=== PATIENT | female | born 1960 | race Caucasian/White ===

== ENCOUNTER → 2021-08-31 | Outpatient (CLI) | payer BC ==
[2021-09-03 17:10] LABS: HPV 16 Negative (Negative); HPV 18 Negative (Negative); HPV OTHER HR TYPES Negative (Negative)
== END | disposition home or self-care (01) ==
LOC: LAB 16:30 → LAB SHORT 16:30
PROVIDERS: Nurse Practitioner Family
DX: Z01.419 Encounter for gynecological examination (general) (routine) without abnormal findings (principal)
CPT/HCPCS: 87624; 88175

== ENCOUNTER 2021-11-09 11:43 | Day surgery (SDC) | payer BC ==
[~2021-11-09] VITALS: Ht 157.5 cm; Wt 57.9 kg
[2021-11-09] MEDS ORDERED: ATOR80 PO (12:25)
[2021-11-09] MEDS ORDERED: TRAZ50 PO (12:25)
[2021-11-09] MEDS ORDERED: SERT25 PO (12:25)
--- NOTE | 2021-11-09 12:30 | NUR ---
11/09/21 1230 Carmelo Read CALL LIGHT WITHIN REACH
--- NOTE | 2021-11-09 13:33 | NUR ---
11/09/21 1333 Jamarcus Vivar 1 MG EPI ADDED TO EACH OF THE FIRST 3 BAGS OF LR PER ORDER FOR IRRIGATION AT [facility].
== END 2021-11-09 15:35 | disposition home or self-care (01) ==
LOC: ORSCSDS 11:43
PROVIDERS: Orthopaedic Surgery
PROC: 3E0U3GC Introduction of Other Therapeutic Substance into Joints, Percutaneous Approach (ICD-10-PCS; 2021-11-09)
PROC: 0RHJ44Z Insertion of Internal Fixation Device into Right Shoulder Joint, Percutaneous Endoscopic Approach (ICD-10-PCS; principal; 2021-11-09 13:15)
PROC: 0LQ14ZZ Repair Right Shoulder Tendon, Percutaneous Endoscopic Approach (ICD-10-PCS; principal; 2021-11-09 13:15)
PROC: 0LS34ZZ Reposition Right Upper Arm Tendon, Percutaneous Endoscopic Approach (ICD-10-PCS; principal; 2021-11-09 13:15)
PROC: 0RNJ4ZZ Release Right Shoulder Joint, Percutaneous Endoscopic Approach (ICD-10-PCS; principal; 2021-11-09 13:15)
DX: M75.111 Incomplete rotator cuff tear or rupture of right shoulder, not specified as traumatic (principal); M75.21 Bicipital tendinitis, right shoulder; M75.41 Impingement syndrome of right shoulder; Z87.891 Personal history of nicotine dependence; F41.8 Other specified anxiety disorders; E78.5 Hyperlipidemia, unspecified; Z79.899 Other long term (current) drug therapy
CPT/HCPCS: 29827; 29828; 29826; 0232T; C1713; J0171; J1100; J2250; J2370; J2405; J2704; J3010; J7120

== ENCOUNTER → 2022-09-19 | Outpatient (CLI) | payer BC ==
[~2022-09-19] MED LIST: ATOR80 PO; SERT25 PO; TRAZ50 PO
[2022-09-20 11:06] LABS: Stool Occult Blood Guaiac 1 Neg (Neg)
== END | disposition home or self-care (01) ==
LOC: LAB 18:28 → LAB SHORT 18:28
PROVIDERS: Family Medicine
DX: K92.1 Melena (principal)
CPT/HCPCS: 82270

== ENCOUNTER 2023-02-08 09:03 | Day surgery (SDC) | payer BC ==
[~2023-02-08] VITALS: Ht 156 cm; Wt 6.0 kg
[2023-02-08] VITALS (16 sets, daily range): BP systolic 105–181; BP diastolic 64–154
[~2023-02-08 09:03] MED LIST changes: +MELO7.5 PO; +PAXIL20 M1 PO; +PROZAC20 M1 PO
--- NOTE | 2023-02-08 10:24 | NUR ---
History, Chart, Medications and Allergies reviewed before start of procedure. Ambulatory in Day Surgery. Pre-Op teaching done. Pt verbalizes understanding. Patient confirms NPO status and agrees with scheduled surgery. Patient reports completing Chlorhexadine shower X2 prior to admission to hospital. Surgical site prepped with 2% Chlorhexidine cloth wipe. Lungs clear T/O to Auscultation. Patient States Post-Procedure ride home has been arranged.
--- NOTE | 2023-02-08 11:08 | NUR ---
02/08/23 1108 Connie Lowery PATIENT RECEIVED VANCO 1GM IV IN THE PREOP SETTING PRIOR TO ARRIVING IN THE OR.
--- NOTE | 2023-02-08 13:28 | NUR ---
PATIENT ARRIVED FROM PACU TODAY. POD 0 LEFT TOTAL KNEE PATIENT IS A&OX4. PATIENT HAD A SPINAL DURING THE PROCEDURE AND REPORTS NUMBNESS FROM THE KNEES DOWN BUT IS ABLE TO MOVE HER TOES. SHE DENIES PAIN AT THIS TIME. HER LEFT KNEE HAS AN AQUACEL THAT IS C/D/I. POLAR PACK IN PLACE. SHE IS TOLERATING SMALL AMOUNTS OF PO INTAKE. SHE IS LAYING IN BED WITH CALL LIGHT IN REACH.
--- NOTE | 2023-02-08 17:07 | NUR ---
SHIFT SUMMARY: POD 0 LEFT TOTAL KNEE PATIENT IS A&OX4. VS ARE WNL AND IS ON RA. PATIENT HAS DENIED PAIN SO FAR THIS SHIFT. HER LEFT KNEE HAS AN AQUACEL THAT IS C/D/I. PATIENT REPORTS HAVING FULL SENSATION IN ALL EXTREMITIES AND IS ABLE TO MOVE ALL FINGERS AND TOES. SHE WAS ABLE TO WORK WITH PHYSICAL THERAPY ONCE TODAY. SHE IS TOLERATING PO INTAKE AND IS VOIDING. PATIENT IS LAYING IN BED WITH CALL LIGHT IN REACH.
--- NOTE | 2023-02-09 04:27 | NUR ---
SHIFT SUMMARY POD 1 L TKA PT RESTED T/O NIGHT. PAIN MANAGED PER EMAR. DRESSING TO L KNEE C/D/I. POLAR PAC AND SCD'S ON ALL NIGHT. UP TO THE BATHROOM MULTIPLE TIMES, VOIDING. TOLERATING PO INTAKE. VSS. PLAN FOR D/C TODAY. NO OTHER CONCERNS A THIS TIME. CALL LIGHT WITHIN REACH.
[2023-02-09 05:10] LABS: BASOPHILS ABSOLUTE AUTO 0.01 K/mm3 (0.00-0.23); BASOPHILS PERCENT AUTO 0 % (0-2); EOSINOPHILS PERCENT AUTO 0 % (0-6); Hematocrit 35.3 % (33.0-51.0); Hemoglobin 11.2 g/dL (11.5-16.0); IMMATURE GRAN ABSOLUTE AUTO 0.04 K/mm3 (0.00-0.10); IMMATURE GRAN PERCENT AUTO 0 % (0-1); LYMPHOCYTES ABSOLUTE AUTO 0.97 K/mm3 (0.84-5.20); LYMPHOCYTES PERCENT AUTO 7 % (21-46); MONOCYTES ABSOLUTE AUTO 0.99 K/mm3 (0.16-1.47); MONOCYTES PERCENT AUTO 7 % (4-13); Mean Corpuscular HGB 28.1 pg (26.0-34.0); Mean Corpuscular HGB Conc 31.7 g/dL (31.5-36.5); Mean Corpuscular Volume 89 fL (80-100); Mean Platelet Volume 9.8 fL (9.1-12.4); NEUTROPHILS ABSOLUTE AUTO 11.94 K/mm3 (1.96-9.15); NEUTROPHILS PERCENT AUTO 86 % (41-73); Platelet Count 258 K/mm3 (150-400); RDW Coefficient Variation 13.2 % (11.7-14.2); RDW Standard Deviation 42.7 fL (35.1-46.3); Red Blood Cell Count 3.99 M/mm3 (3.80-5.20); White Blood Cell Count 13.95 K/mm3 (4.00-11.30)
[2023-02-09 05:11] VITALS: BP 118/69
[2023-02-09 05:37] LABS: Bun/Creatinine Ratio 23.9 (12.0-20.0); Calcium, Blood 8.6 mg/dL (8.5-10.1); Creatinine, Blood 0.63 mg/dL (0.40-1.00); Magnesium, Blood 2.1 mg/dL (1.6-2.4); Potassium, Blood 4.3 mmol/L (3.5-5.5)
[2023-02-09 07:14] VITALS: BP 100/58
[2023-02-09] MEDS ORDERED: OXYC5 PO (07:26)
[2023-02-09] MEDS ORDERED: ASPI81CH PO (07:26)
[2023-02-09] MEDS ORDERED: PROM25 PO (07:27)
[2023-02-09] MEDS ORDERED: SULTRIDS PO (07:27)
--- NOTE | 2023-02-09 18:58 | NUR ---
DISCHARGE: PT DC'D HOME THIS AM AFTER CLEARED WITH THERAPY, DC INSTRUCTIONS GIVEN, VERBALIZED UNDERSTANDING, IV DC'D CATH INTACT.
== END 2023-02-09 11:38 | disposition home or self-care (01) ==
LOC: ORSCMMR 09:03 → ORD 10:45 → SURS 13:02 → ORSCMMR 02-09 11:38
PROVIDERS: Orthopaedic Surgery
PROC: 0SRD0J9 Replacement of Left Knee Joint with Synthetic Substitute, Cemented, Open Approach (ICD-10-PCS; principal; 2023-02-08 10:45)
DX: M17.12 Unilateral primary osteoarthritis, left knee (principal); E78.5 Hyperlipidemia, unspecified; Z79.899 Other long term (current) drug therapy
CPT/HCPCS: 36415; 73560-LT; 80048; 83735; 85025; 97110; 97116; 97162; A9270; C1713; C1776; J0171; J0690; J0735; J1100; J1885; J2250; J2405; J2704; J2795; J3010; J3370; J7120

== ENCOUNTER → 2023-12-14 | Outpatient (CLI) | payer BC ==
[~2023-12-14] MED LIST changes: +ASPI81CH PO; +OXYC5 PO; +PROM25 PO; +SULTRIDS PO
[2023-12-15 12:53] LABS: Bacterial Vaginosis PCR Negative (NEGATIVE); Candida Group, PCR NOT DETECTED (NOT DETECT); Candida glabrata-krusei, PCR NOT DETECTED (NOT DETECT)
== END | disposition home or self-care (01) ==
LOC: LAB SHORT 17:17 → LAB 17:17
PROVIDERS: Family Medicine
DX: N89.8 Other specified noninflammatory disorders of vagina (principal)
CPT/HCPCS: 87481; 87661; 87801